=== PATIENT | female | born 1940 | race Caucasian/White ===

== ENCOUNTER 2018-12-13 06:41 | Day surgery (SDC) | payer OTHER, SELFPAY ==
[2018-12-13 07:10] VITALS: BP 155/78; PULSE 63; RESP 15; TEMP 36.4; O2SAT 94; BMI 21.1
[2018-12-13] MEDS: PROPARACAINE 0.5% OPHTH SOL 2 DROPS EYE-OP (07:15)
[2018-12-13] MEDS: CATARACT EYE COMPOUND (10 DROPS/SYRINGE) 3 DROPS EYE-OP (07:20)
--- NOTE | 2018-12-13 08:13 | PM.PREOP ---
Pre-operative Note Interval Note History & Physical reviewed/Exam performed by Physician: No Changes to H&P: No
--- NOTE | 2018-12-13 08:13 | PM.OP.1 ---
Operative Date/Time/Diagnoses Pre-op diagnosis: Nuclear Cataract Left eye Post-op diagnosis: same Procedure & Clinicians Surgeon: Claudy Burch Anesthesia Type: MAC +/- and Sedation Operative Notes Procedure in detail: Patient brought to the operating suite. Tetracaine drops placed in the left eye. Patient was prepped and draped in sterile manner. Wire lid speculum was placed in the eye. Betadine drops were placed on the eye. This was irrigated. Lidocaine jelly was placed on the eye. A paracentesis port was created with a side-port blade. 0.1 mL 1% preservative free lidocaine was injected into the anterior chamber. The anterior chamber was deepened with viscoelastic. 2.6 mm keratome was used to create a temporal clear corneal incision. Cystotome and Utrata forceps were used to create continuous tear capsulorrhexis. Balanced salt solution was used to hydro dissect the nucleus. The phacoemulsification handpiece was inserted and the nucleus was removed using the stop and chop technique. The irrigation aspiration handpiece was inserted and the remaining cortex was removed. Anterior chamber was deepened with viscoelastic. An Sarmiento ZCB00 intraocular lens with a power of 24.5 was injected into the capsular bag. Irrigation aspiration handpiece was inserted and the remaining viscoelastic was removed. Incision was hydrated with balanced salt solution and found to be leak free with pressure with Weck-Cydney sponges. 0.1 mL Vigamox injected anterior chamber. 0.3 mL Kenalog 10 mg was injected subconjunctivally. Lid speculum was removed. The patient left the operating room in excellent condition. Complications: none Condition: stable Disposition: same day surgery
[2018-12-13] MEDS: PHENYLEPHRINE/LIDOCAINE VIAL (OR) 0.2 ML EYE-OP (08:29)
[2018-12-13] MEDS: MOXIFLOXACIN OPHTH DROPS 3 ML BOTTLE 2 DROPS INJ (08:29)
[2018-12-13] MEDS: CHONDROIDTIN/SOD HYALURONATE 1.05 ML SYRINGE INTRAOCULA (08:29)
[2018-12-13] MEDS: TRIAMCINOLONE 50 MG/5 ML VIAL INJ (08:29)
[2018-12-13] MEDS: TETRACAINE 0.5% OPHTH DROPS 4 ML 2 DROPS EYE-OP (08:30)
[2018-12-13] MEDS: BALANCED SALT IRRIG SOLN NO.2 500 ML, EPINEPHrine 1 MG IRR (08:30)
[2018-12-13] MEDS: LIDOCAINE JELLY 2% 5 ML 1 APPLIC TOP (08:30)
[2018-12-13 08:45] VITALS: BP 130/75; PULSE 55; RESP 15; TEMP 36.2; O2SAT 97
== END 2018-12-13 08:54 ==
LOC: OR 06:44
PROVIDERS: Admitting Provider Anesthesiology; PCP Family Medicine; Visit Provider Ophthalmology
PROC: (CPT 66984; principal; 2018-12-13 08:45)
DX: H25.12 Age-related nuclear cataract, left eye (principal); I10 Essential (primary) hypertension; D64.9 Anemia, unspecified; J45.909 Unspecified asthma, uncomplicated; R73.9 Hyperglycemia, unspecified
CPT/HCPCS: 66984; J0171; J2250; J3010; J3301

== ENCOUNTER 2018-12-27 08:20 | Day surgery (SDC) | payer OTHER, SELFPAY ==
[2018-12-27 09:25] VITALS: BP 125/82; PULSE 59; RESP 16; TEMP 36.3; O2SAT 97
[2018-12-27 09:28] VITALS: BMI 21.1
[2018-12-27] MEDS: PROPARACAINE 0.5% OPHTH SOL 2 DROPS EYE-OP (09:32)
[2018-12-27] MEDS: CATARACT EYE COMPOUND (10 DROPS/SYRINGE) 3 DROPS EYE-OP (09:44)
--- NOTE | 2018-12-27 10:01 | PM.PREOP ---
Pre-operative Note Interval Note History & Physical reviewed/Exam performed by Physician: No Changes to H&P: No
--- NOTE | 2018-12-27 10:01 | PM.OP.1 ---
Operative Date/Time/Diagnoses Pre-op diagnosis: Nuclear cataract right eye Procedure & Clinicians Procedure: Cataract Surgery Same procedure as scheduled: Yes Surgeon: Claudy Burch Anesthesia Type: MAC +/- and Sedation Operative Notes Procedure in detail: Patient brought to the operating suite. Tetracaine drops placed in the right eye. Patient was prepped and draped in sterile manner. Wire lid speculum was placed in the eye. Betadine drops were placed on the eye. This was irrigated. Lidocaine jelly was placed on the eye. A paracentesis port was created with a side-port blade. 0.1 mL 1% preservative free lidocaine was injected into the anterior chamber. The anterior chamber was deepened with viscoelastic. 2.6 mm keratome was used to create a temporal clear corneal incision. Cystotome and Utrata forceps were used to create continuous tear capsulorrhexis. Balanced salt solution was used to hydro dissect the nucleus. The phacoemulsification handpiece was inserted and the nucleus was removed using the stop and chop technique. The irrigation aspiration handpiece was inserted and the remaining cortex was removed. Anterior chamber was deepened with viscoelastic. An Sarmiento ZCB00 intraocular lens with a power of 24.5 was injected into the capsular bag. Irrigation aspiration handpiece was inserted and the remaining viscoelastic was removed. Incision was hydrated with balanced salt solution and found to be leak free with pressure with Weck-Cydney sponges. 0.1 mL Vigamox injected anterior chamber. 0.3 mL Kenalog 10 mg was injected subconjunctivally. Lid speculum was removed. The patient left the operating room in excellent condition. Complications: none Condition: stable Disposition: same day surgery
[2018-12-27] MEDS: CHONDROIDTIN/SOD HYALURONATE 1.05 ML SYRINGE INTRAOCULA (10:10)
[2018-12-27] MEDS: LIDOCAINE JELLY 2% 5 ML 1 APPLIC TOP (10:10)
[2018-12-27] MEDS: PHENYLEPHRINE/LIDOCAINE VIAL (OR) 0.2 ML EYE-OP (10:11)
[2018-12-27] MEDS: TETRACAINE 0.5% OPHTH DROPS 4 ML 2 DROPS EYE-OP (10:11)
[2018-12-27] MEDS: MOXIFLOXACIN OPHTH DROPS 3 ML BOTTLE 2 DROPS INJ (10:11)
[2018-12-27] MEDS: BALANCED SALT IRRIG SOLN NO.2 500 ML, EPINEPHrine 1 MG IRR (10:12)
[2018-12-27] MEDS: TRIAMCINOLONE 50 MG/5 ML VIAL INJ (10:12)
[2018-12-27 10:29] VITALS: BP 161/77; PULSE 50; RESP 14; TEMP 36.6; O2SAT 98
== END 2018-12-27 10:37 ==
LOC: OR 08:22
PROVIDERS: PCP Family Medicine; Visit Provider Ophthalmology
PROC: (CPT 66984; principal; 2018-12-27 10:15)
DX: H25.11 Age-related nuclear cataract, right eye (principal); I10 Essential (primary) hypertension; D64.9 Anemia, unspecified; E78.5 Hyperlipidemia, unspecified; J45.909 Unspecified asthma, uncomplicated
CPT/HCPCS: 66984; J0171; J2250; J3010; J3301

== ENCOUNTER 2020-07-07 15:49 | Emergency (ER) | payer OTHER, SELFPAY ==
[2020-07-07] VITALS (12 sets, daily range): BP systolic 151–166; BP diastolic 72–82; PULSE 62–72; RESP 16; TEMP 36.8; O2SAT 91–98; BMI 22.2
--- NOTE | 2020-07-07 16:26 | ED.SKABFB ---
HPI - Skin/Abscess/Foreign Bdy <ANTONELLA Perez - Last Filed: 07/07/20 21:11> General Chief complaint: Skin/Abscess/Foreign Body Stated complaint: recent blood clot, surgery, R leg swelling today Time Seen by Provider: 07/07/20 15:56 Source: patient Mode of arrival: Ambulatory Limitations: no limitations History of Present Illness HPI narrative: This is a 80 year female, nonsmoker, who has past medical history significant for hypertension and recent blood clot in right lower extremity and had surgery for removal at [facility] in [facility] presents to ED with chief complain of right leg swelling, redness, warmth, and pus-like drainage for 2 days. Daughter reports patient also mentions some leg cramping discomfort today. Patient reports she went to [facility] via EMS after she passed out and found a clot in right groin and was transferred to [place] and had a surgery on 06/12/20. She came home several days after and had 2 week post op appointment with another ultrasound test but not sure of the result yet. Patient is currently taking Eliquis 5 mg. Patient denies chest pain, dyspnea, fever or chills. Patient reports discomfort like stretching in skin in right leg when sitting on a chair for prolonged time. Patient started taking HCTZ 50 mg daily last [address] Kim prescribed. Daughter reports patient had a small blister in the posterior calf of right leg that she scratched and noticed yellowish pus like drainage. Also daughter noticed purplish bruise in left heel with puple bruise and opened skin. Related Data Home Medications Medication Instructions Recorded Confirmed HYDROCHLOROTHIAZIDE (Hydrodiuril / 25 mg PO Q DAY #0 07/25/08 12/27/18 Hctz) HYDROCODONE/ACET 5/500 - 1 tab PO Q4HPRN #0 07/25/08 12/27/18 (Hydrocodon-Acetaminophen 5-500) MULTIVITAMIN (Multivitamin 1 cap PO EVERY DAY #0 07/25/08 12/27/18 -) amlodipine 5 mg PO DAILY 12/27/18 12/27/18 clonidine HCl 0.1 mg PO 12/27/18 metoprolol tartrate 50 mg PO DAILY 12/27/18 12/27/18 olmesartan 20 mg PO DAILY 12/27/18 12/27/18 omega 1-leo-lae-fish oil [Fish Oil] 1 cap PO DAILY 12/27/18 12/27/18 zolpidem 5 mg PO DAILY 12/27/18 12/27/18 Previous Rx's Medication Instructions Recorded doxycycline hyclate 100 mg PO BID 7 Days #14 cap 07/07/20 Allergies Allergy/AdvReac Type Severity Reaction Status Date / Time bee venom protein (honey bee) Allergy Severe Hives Verified 12/27/18 09:15 strawberry AdvReac Severe Hives Verified 12/27/18 09:15 Review of Systems <ANTONELLA Perez - Last Filed: 07/07/20 21:11> Review of Systems Narrative: General: Denies fever, chills, fatigue, malaise, sweats. HEENT: Denies sinus pain, ear pain, sore throat, difficulty swallowing, dizziness. Respiratory: Denies dyspnea, cough, wheezing, hemoptysis, sputum. Cardiovascular: Denies chest pain, palpitations, orthopnea, edema. Gastrointestinal: Denies nausea, vomiting, abdominal pain, diarrhea, constipation, melena. : Denies dysuria, frequency, incontinence, hematuria, urinary retention. Musculoskeletal: See HPI Skin: See HPI Neurologic: Denies weakness, headache, numbness, change in speech, confusion, seizures, incoordination. Psychiatric: No concerning psychosocial issues. 12-point review of systems is negative except for those stated above. Patient History <ANTONELLA Perez - Last Filed: 07/07/20 21:11> Medical History (Updated 07/07/20 @ 20:51 by ANTONELLA Perez) Hypertension Obstruction of left leg artery Surgical History (Updated 07/07/20 @ 17:39 by ANTONELLA Perez) H/O vascular surgery Social History household members: none Smoking Status: Never smoker Smoking Status: Never smoker alcohol intake frequency: 0-2 drinks per day Substance Use Type: does not use Exam <ANTONELLA Perez - Last Filed: 07/07/20 21:11> Narrative Exam Narrative: GEN: Alert, oriented x 3, thin appearing and nourished, and in no acute distress. Head: Normal cephalic, atraumatic. No scalp or temporal tenderness, palpable mass or rash. EYES: Pupils are equal, round, and reactive to light and accommodation. Extraocular muscles are intact bilaterally. There is no subconjunctival hemorrhage, exudate and sclera non-icteric. ENT: Hearing grossly intact. Nose without bleeding, purulent discharge or deviation. Airway patent. Neck: Trachea in midline. No JVD, non-tender without lymphadenopathy. No masses or thyroid megaly. Supple, non-tender and no meningeal signs. CARDIAC: Normal regular rate and rhythm without murmurs, gallops, or rubs. No chest wall tenderness. 2+ pitting edema to right lower leg, cyanosis or pallor. Capillary refill is less than 2 seconds. RESPIRATORY: Lungs are clear to auscultate bilaterally. No cough, wheezes, rales, or rhonchi. No stridor, respiratory distress, increase work of breathing, or accessary muscle used. ABD: Abdomen soft, nontender and non-distended. No guarding or rebound tenderness to palpate. Bowel sounds are normal in all 4 quadrants. There is no palpable masses or organomegaly. EXT: Right upper thigh appreciated hard to palpate. Right thigh discoloration with yellowish tinge color. Slowed cap refill to 4 seconds in right toes. Difficulty palpating dorsal pedis pulse in right foot. SKIN: Diffuse erythema, warmth to mid calf to foot. Swelling to right leg and 2+ pitting edema to right lower extremity. Warm, dry, normal color for patient. Approx. 1 cm opened blister in right medial calf draining clear yellowish fluid. Multiple ecchymotic lesions on right toes. Right great toe with edema and dark ecchymosis with epithelial open skin lesion. Left heel with a quarter-size ecchymotic lesion with open epithelia skin. Right lower leg tender to palpate. BACK: Nontender without deformity or crepitance. No flank tenderness. NEUROLOGICAL: Alert and oriented to place, time and person. Sensation and motor function intact bilaterally. No facial droops, dysphasia. PSYCHIATRIC: Good judgement and reason, without hallucinations, abnormal affect or abnormal behaviors during the examination. Patient is not suicidal. Initial Vital Signs Initial Vital Signs: Vital Signs Temperature 98.3 F 07/07/20 16:03 Pulse Rate 72 07/07/20 16:03 Respiratory Rate 16 07/07/20 16:03 Blood Pressure 162/77 H 07/07/20 16:03 Pulse Oximetry 97 07/07/20 16:03 <Cheri Ascencio DO - Last Filed: 07/09/20 07:14> Initial Vital Signs Initial Vital Signs: Vital Signs Temperature 98.3 F 07/07/20 16:03 Pulse Rate 72 07/07/20 16:03 Respiratory Rate 16 07/07/20 16:03 Blood Pressure 162/77 H 07/07/20 16:03 Pulse Oximetry 97 07/07/20 16:03 Procedures <Duarte GeigerANTONELLA Douglass - Last Filed: 07/07/20 21:11> Orthopedic Splinting/Casting Injury #1: Side: right Lower Extremity Injury Location: upper leg and lower leg Lower Extremity Immobilizer: Gene wrap Post splinting neuro exam: intact Post splinting vascular exam: intact Placed by: Nursing Scores <ANTONELLA Perez - Last Filed: 07/07/20 21:11> GCS [place] coma scale eye opening: Spontaneous [place] coma scale verbal response: Orientated Zainab coma scale motor response: Obey commands [place] coma scale total score: 15 qSOFA Altered Mental Status (GCS <15): No Respiratory rate greater than/equal to 22: No Systolic blood pressure less than or equal to 100: No qSOFA Total: 0 0-1 Not High Risk 1-3 High risk Course <ANTONELLA Perez - Last Filed: 07/07/20 21:11> Orders Ordered: Discontinued Medications Bacitracin (Bacitracin Oint 0.9 Gm Pckt) 2 applic TOP NOW ONE Stop: 07/07/20 20:07 Last Admin: 07/07/20 20:26 Dose: 2 applic Documented by: BELINDAARTGARCIA Doxycycline Hyclate (Doxycycline Hyclate 100 Mg Tablet) 100 mg PO NOW ONE Stop: 07/07/20 19:59 Last Admin: 07/07/20 20:26 Dose: 100 mg Documented by: REUBEN Consultations Consultation #1: Consulted Dr. Moran, vascular surgeon who had followed up the patient in [facility] in [place] informed today's arterial ultrasound findings are similar to 2 weeks ago after postop. Dr. Moran states no emergent therapy or transfer is required at this time. He recommended compression stocking or applying compression wrap on affected leg and to elevate the leg during rest. Informed Dr. Moran that will cover the patient with oral antibiotic medication for an early cellulitis. He states will be happy to evaluate the patient at the office this coming week. Time: 19:50 Vital Signs Vital signs: Vital Signs - 8 hr 07/07/20 16:03 07/07/20 16:53 07/07/20 17:01 Temperature 98.3 F Pulse Rate 72 64 66 Respiratory Rate 16 16 Blood Pressure 162/77 H 166/77 H Pulse Oximetry 97 95 96 07/07/20 17:30 07/07/20 18:00 07/07/20 18:01 Temperature Pulse Rate 62 64 65 Respiratory Rate 16 Blood Pressure 157/75 H 163/79 H Pulse Oximetry 97 96 91 07/07/20 18:30 07/07/20 19:00 07/07/20 19:30 Temperature Pulse Rate 65 62 62 Respiratory Rate 16 16 Blood Pressure 166/80 H 164/77 H Pulse Oximetry 96 94 95 07/07/20 19:35 Temperature Pulse Rate 64 Respiratory Rate 16 Blood Pressure 160/82 H Pulse Oximetry 98 <Cheri Ascencio, DO - Last Filed: 07/09/20 07:14> Orders Ordered: Discontinued Medications Bacitracin (Bacitracin Oint 0.9 Gm Pckt) 2 applic TOP NOW ONE Stop: 07/07/20 20:07 Last Admin: 07/07/20 20:26 Dose: 2 applic Documented by: REUBEN Doxycycline Hyclate (Doxycycline Hyclate 100 Mg Tablet) 100 mg PO NOW ONE Stop: 07/07/20 19:59 Last Admin: 07/07/20 20:26 Dose: 100 mg Documented by: REUBEN Vital Signs Vital signs: Vital Signs - 8 hr 07/07/20 16:03 07/07/20 16:53 07/07/20 17:01 Temperature 98.3 F Pulse Rate 72 64 66 Respiratory Rate 16 16 Blood Pressure 162/77 H 166/77 H Pulse Oximetry 97 95 96 07/07/20 17:30 07/07/20 18:00 07/07/20 18:01 Temperature Pulse Rate 62 64 65 Respiratory Rate 16 Blood Pressure 157/75 H 163/79 H Pulse Oximetry 97 96 91 07/07/20 18:30 07/07/20 19:00 07/07/20 19:30 Temperature Pulse Rate 65 62 62 Respiratory Rate 16 16 Blood Pressure 166/80 H 164/77 H Pulse Oximetry 96 94 95 07/07/20 19:35 Temperature Pulse Rate 64 Respiratory Rate 16 Blood Pressure 160/82 H Pulse Oximetry 98 MDM - Skin/Abscess/Foreign Bdy <Duarte Wang-ANTONELLA Miles - Last Filed: 07/07/20 21:11> Differential Diagnosis Differential diagnosis: Likely cellulitis and other (Venous insufficiency, DVT, CHF, PAD) Medical Records Attestation: I reviewed the patient's medical records. Lab Data Attestation: I reviewed the patient's lab results. Result diagrams: 07/07/20 16:13 07/07/20 16:13 Labs: Lab Results 07/07/20 07/07/20 07/07/20 Range/Units 16:13 16:13 16:13 WBC 7.4 (4.5-11.0) X10^3/uL RBC 3.76 L (4.0-5.2) X10^6/uL Hgb 12.3 (12.0-16.0) g/dL Hct 36.6 (36-46) % MCV 97.4 (80-100) fL MCH 32.7 (26-34) PG MCHC 33.6 (30-36) % RDW 14.8 (11.6-14.8) % Plt Count 204 (150-400) X10^3/uL Neut % (Auto) 70.3 (50-75) % Lymph % (Auto) 15.8 L (25-40) % Vernon % (Auto) 11.6 (3-14) % Eos % (Auto) 1.8 L (2-4) % Baso % (Auto) 0.5 (0-2) % Neut # (Auto) 5200 (0946-3197) /uL Lymph # (Auto) 1200 (5855-2049) /uL Vernon # (Auto) 900 (0-900) /uL Eos # (Auto) 100 (0-450) /uL Baso # (Auto) 0 (0-100) /uL PT 16.9 H (10.1-12.7) SECONDS INR 1.5 H (0.9-1.3) APTT 38 H (26.4-36.2) SECONDS Sodium 137 (137-145) mmol/L Potassium 3.6 (3.4-5.1) mmol/L Chloride 102 (98-107) mmol/L Carbon Dioxide 31 (22-32) mmol/L BUN 22 H (7-17) mg/dL Creatinine 0.66 (0.52-1.04) mg/dL Estimated GFR > 60.0 (>60) mL/min BUN/Creatinine Ratio 33.3 H (6-22) Glucose 106 (80-110) mg/dL Lactate (0.7-2.1) mmol/L Calcium 9.8 (8.4-10.2) mg/dL Total Bilirubin 0.5 (0.2-1.3) mg/dL AST 24 (14-36) IU/L ALT 12 (<35) IU/L Alkaline Phosphatase 68 (38-126) U/L NT-Pro-B Natriuret Pep 662 H (<450) pg/mL Total Protein 7.3 (6.3-8.2) g/dL Albumin 4.0 (3.5-5.0) g/dL Globulin 3.3 (1.7-4.1) g/dL Albumin/Globulin Ratio 1.2 (1.0-2.8) Procalcitonin (<0.5) ng/mL 07/07/20 07/07/20 Range/Units 16:13 16:13 WBC (4.5-11.0) X10^3/uL RBC (4.0-5.2) X10^6/uL Hgb (12.0-16.0) g/dL Hct (36-46) % MCV (80-100) fL MCH (26-34) PG MCHC (30-36) % RDW (11.6-14.8) % Plt Count (150-400) X10^3/uL Neut % (Auto) (50-75) % Lymph % (Auto) (25-40) % Vernon % (Auto) (3-14) % Eos % (Auto) (2-4) % Baso % (Auto) (0-2) % Neut # (Auto) (2429-2705) /uL Lymph # (Auto) (2698-2078) /uL Vernon # (Auto) (0-900) /uL Eos # (Auto) (0-450) /uL Baso # (Auto) (0-100) /uL PT (10.1-12.7) SECONDS INR (0.9-1.3) APTT (26.4-36.2) SECONDS Sodium (137-145) mmol/L Potassium (3.4-5.1) mmol/L Chloride (98-107) mmol/L Carbon Dioxide (22-32) mmol/L BUN (7-17) mg/dL Creatinine (0.52-1.04) mg/dL Estimated GFR (>60) mL/min BUN/Creatinine Ratio (6-22) Glucose (80-110) mg/dL Lactate 1.2 (0.7-2.1) mmol/L Calcium (8.4-10.2) mg/dL Total Bilirubin (0.2-1.3) mg/dL AST (14-36) IU/L ALT (<35) IU/L Alkaline Phosphatase (38-126) U/L NT-Pro-B Natriuret Pep (<450) pg/mL Total Protein (6.3-8.2) g/dL Albumin (3.5-5.0) g/dL Globulin (1.7-4.1) g/dL Albumin/Globulin Ratio (1.0-2.8) Procalcitonin < 0.05 (<0.5) ng/mL MDM Narrative Medical decision making narrative: This is a 80 year female who presents to ED with her daughter with chief complain of right lower leg swelling, redness, warmth, open skin lesions and drainage. Patient recently had emergent right arterial embolectomy on 06/08/20 at [facility] after she was initially evaluated at [facility] and found right common artery occlusion. Patient was discharged to home on the 12 of June and has been on Eliquis 5 mg twice a day. Patient reports had repeated 2 week postop ultrasound on right leg but is not sure of the result. Concerned for DVT and worsening arterial occlusion ultrasound test was ordered and obtained. There is no indications for DVT. There are 2 hematoma in right thigh measuring 8 x 3.5 x 6.4 and 6.6 x 2.5 x 3.6 cm. 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 36 cm/sec Monophasic flow was seen in anterior tibial artery/dorsalis pedis. Labs are unremarkable. No leukocytosis. Mildly elevated coags today. Elevated BUN of 22 and BUN/creatinine ratio of 33.3 with normal kidney function and LFTS. Mildy elevated pro BNP of 662 and she has been taking diuretics last 3 days for lower leg swelling. There is no elevation in lactate or procalcitonin indicating sepsis. Dr. Moran consulted with physical, lab, ultrasound findings. He recommended Gene wrap or compression stocking on right lower extremities and to elevate affected leg as much as possible during rest. He recommended no emergent transfer for treatment are needed since today's findings are similar to last ultrasound during postop. Informed Dr. Moran that will treat patient with early cellulitis with antibiotic medication and he informed is happy to re-evaluate patient next week and to call the office to arrange this. Wound care done on bilateral lower extremities. Gene wrap applied on right foot to groin. Return precautions were discussed with patient and daughter and advised continue with antibiotic medication for 7 days. Patient was treated with 1st dose doxycycline ED. patient and daughter both verbalized understanding in agreement with treatment plan. <Cheri Ascencio, DO - Last Filed: 07/09/20 07:14> Lab Data Labs: Lab Results 07/07/20 07/07/20 07/07/20 Range/Units 16:13 16:13 16:13 WBC 7.4 (4.5-11.0) X10^3/uL RBC 3.76 L (4.0-5.2) X10^6/uL Hgb 12.3 (12.0-16.0) g/dL Hct 36.6 (36-46) % MCV 97.4 (80-100) fL MCH 32.7 (26-34) PG MCHC 33.6 (30-36) % RDW 14.8 (11.6-14.8) % Plt Count 204 (150-400) X10^3/uL Neut % (Auto) 70.3 (50-75) % Lymph % (Auto) 15.8 L (25-40) % Vernon % (Auto) 11.6 (3-14) % Eos % (Auto) 1.8 L (2-4) % Baso % (Auto) 0.5 (0-2) % Neut # (Auto) 5200 (8096-7825) /uL Lymph # (Auto) 1200 (3037-7914) /uL Vernon # (Auto) 900 (0-900) /uL Eos # (Auto) 100 (0-450) /uL Baso # (Auto) 0 (0-100) /uL PT 16.9 H (10.1-12.7) SECONDS INR 1.5 H (0.9-1.3) APTT 38 H (26.4-36.2) SECONDS Sodium 137 (137-145) mmol/L Potassium 3.6 (3.4-5.1) mmol/L Chloride 102 (98-107) mmol/L Carbon Dioxide 31 (22-32) mmol/L BUN 22 H (7-17) mg/dL Creatinine 0.66 (0.52-1.04) mg/dL Estimated GFR > 60.0 (>60) mL/min BUN/Creatinine Ratio 33.3 H (6-22) Glucose 106 (80-110) mg/dL Lactate (0.7-2.1) mmol/L Calcium 9.8 (8.4-10.2) mg/dL Total Bilirubin 0.5 (0.2-1.3) mg/dL AST 24 (14-36) IU/L ALT 12 (<35) IU/L Alkaline Phosphatase 68 (38-126) U/L NT-Pro-B Natriuret Pep 662 H (<450) pg/mL Total Protein 7.3 (6.3-8.2) g/dL Albumin 4.0 (3.5-5.0) g/dL Globulin 3.3 (1.7-4.1) g/dL Albumin/Globulin Ratio 1.2 (1.0-2.8) Procalcitonin (<0.5) ng/mL 07/07/20 07/07/20 Range/Units 16:13 16:13 WBC (4.5-11.0) X10^3/uL RBC (4.0-5.2) X10^6/uL Hgb (12.0-16.0) g/dL Hct (36-46) % MCV (80-100) fL MCH (26-34) PG MCHC (30-36) % RDW (11.6-14.8) % Plt Count (150-400) X10^3/uL Neut % (Auto) (50-75) % Lymph % (Auto) (25-40) % Vernon % (Auto) (3-14) % Eos % (Auto) (2-4) % Baso % (Auto) (0-2) % Neut # (Auto) (9952-8150) /uL Lymph # (Auto) (2713-1109) /uL Vernon # (Auto) (0-900) /uL Eos # (Auto) (0-450) /uL Baso # (Auto) (0-100) /uL PT (10.1-12.7) SECONDS INR (0.9-1.3) APTT (26.4-36.2) SECONDS Sodium (137-145) mmol/L Potassium (3.4-5.1) mmol/L Chloride (98-107) mmol/L Carbon Dioxide (22-32) mmol/L BUN (7-17) mg/dL Creatinine (0.52-1.04) mg/dL Estimated GFR (>60) mL/min BUN/Creatinine Ratio (6-22) Glucose (80-110) mg/dL Lactate 1.2 (0.7-2.1) mmol/L Calcium (8.4-10.2) mg/dL Total Bilirubin (0.2-1.3) mg/dL AST (14-36) IU/L ALT (<35) IU/L Alkaline Phosphatase (38-126) U/L NT-Pro-B Natriuret Pep (<450) pg/mL Total Protein (6.3-8.2) g/dL Albumin (3.5-5.0) g/dL Globulin (1.7-4.1) g/dL Albumin/Globulin Ratio (1.0-2.8) Procalcitonin < 0.05 (<0.5) ng/mL Discharge Plan Departure Patient Disposition: Home Clinical Impression: Cellulitis Qualifiers: Site of cellulitis: extremity Site of cellulitis of extremity: lower extremity Laterality: right Qualified Code(s): L03.115 - Cellulitis of right lower limb Instructions: DI for Cellulitis -- Adult, Peripheral Artery Disease Activity Restrictions/Additional Instructions: You have been diagnosed with [cellulitis in right lower leg. Left lower assuring. There is no deep vein thrombosis ultrasound today in right lower leg. There is arterial insufficiency to right lower extremity. You were medicated with doxycycline which is antibiotic medication to treat cellulitis. Please continue with your current medications including diuretics. Please keep the wound clean and dry. Use Gene wrap on affected leg from lower leg to groin and elevate affected leg as much as you can during rest]. What to do: *Take your medications as directed. Please continue with doxycycline twice a day for next 7 days. This medication has been transmitted to [facility] in [place]. *Follow up with your primary care provider in 2-3 days, call for an appointment. Let them know you were seen in the ED and that we asked you to be seen in follow up. Please follow-up with Dr. Moran next week for re-evaluation. *Return to ED if you have any new, worsening, or concerning symptoms, such as [worsening pain, redness, swelling, warmth, tingling/numbness/weakness to affected leg, chest pain, breathing difficulty, near syncope or any acute concerns]. Prescriptions: New doxycycline hyclate 100 mg capsule 100 mg PO BID 7 Days Qty: 14 RF: 0 No Action HYDROCHLOROTHIAZIDE (Hydrodiuril / Hctz) 25 mg PO Q DAY Qty: 0 RF: 0 MULTIVITAMIN (Multivitamin -) 1 cap PO EVERY DAY Qty: 0 RF: 0 HYDROCODONE/ACET 5/500 - (Hydrocodon-Acetaminophen 5-500) 1 tab PO Q4HPRN Qty: 0 RF: 0 metoprolol tartrate 50 mg tablet 50 mg PO DAILY RF: 0 clonidine HCl 0.1 mg Tablet 0.1 mg PO RF: 0 amlodipine 5 mg Tablet 5 mg PO DAILY RF: 0 zolpidem 10 mg Tablet 5 mg PO DAILY RF: 0 omega 9-ctk-nvo-fish oil [Fish Oil] 1,000 mg (120 mg-180 mg) Capsule 1 cap PO DAILY RF: 0 olmesartan 20 mg Tablet 20 mg PO DAILY RF: 0 Referrals: Remi Cohen MD [Primary Care Provider] - Juan Moran MD [Non-Staff] - <Cheri Ascencio DO - Last Filed: 07/09/20 07:14> Cosign ED Attending Cosignature Attestation: I was immediately available in the department for consultation. Documentation has been reviewed. I agree with assessment and plan.
[2020-07-07 16:29] LABS: Add Manual Diff / Slide Review NO; Basophils Absolute Auto 0 /uL (0-100); Basophils Percent Auto 0.5 % (0-2); Eosinophils Absolute Auto 100 /uL (0-450); Eosinophils Percent Auto 1.8 % (2-4); Hematocrit 36.6 % (36-46); Hemoglobin 12.3 g/dL (12.0-16.0); INR 1.5 (0.9-1.3); Lymphocytes Absolute Auto 1200 /uL (1100-4500); Lymphocytes Percent Auto 15.8 % (25-40); Mean Corpuscular HGB Conc 33.6 % (30-36); Mean Corpuscular Hemoglobin 32.7 PG (26-34); Mean Corpuscular Volume 97.4 fL (80-100); Monocytes Absolute Auto 900 /uL (0-900); Monocytes Percent Auto 11.6 % (3-14); Neutrophils Absolute Auto 5200 /uL (1500-7000); Neutrophils Percent Auto 70.3 % (50-75); Platelet Count 204 X10^3/uL (150-400); Prothrombin Time 16.9 SECONDS (10.1-12.7); Red Blood Cell Count 3.76 X10^6/uL (4.0-5.2); Red Cell Distribution Width 14.8 % (11.6-14.8); White Blood Cell Count 7.4 X10^3/uL (4.5-11.0)
[2020-07-07 16:32] LABS: PTT Partial Thromboplastin Tim 38 SECONDS (26.4-36.2)
[2020-07-07 16:37] LABS: Alanine Aminotransferase 12 IU/L (<35); Albumin Globulin Ratio 1.2 (1.0-2.8); Alkaline Phosphatase 68 U/L (38-126); Aspartate Aminotransferase 24 IU/L (14-36); BUN Creatinine Ratio 33.3 (6-22); Bilirubin Total 0.5 mg/dL (0.2-1.3); Blood Urea Nitrogen 22 mg/dL (7-17); Calcium 9.8 mg/dL (8.4-10.2); Carbon Dioxide 31 mmol/L (22-32); Chloride 102 mmol/L (98-107); Estimated Glomerular Filt Rate > 60.0 mL/min (>60); Globulin 3.3 g/dL (1.7-4.1); Glucose 106 mg/dL (80-110); HEMOLYSIS < 15 (0-50); Lactate (Lactic Acid) 1.2 mmol/L (0.7-2.1); Potassium 3.6 mmol/L (3.4-5.1); Sodium 137 mmol/L (137-145); Total Protein 7.3 g/dL (6.3-8.2)
[2020-07-07 16:45] LABS: NT-proBNP (BNP-Adult 18+) 662 pg/mL (<450)
[2020-07-07 16:55] LABS: Procalcitonin < 0.05 ng/mL (<0.5)
--- NOTE | 2020-07-07 17:33 | DI.US.S_ITS ---
PROCEDURE: US ARTERIAL DUPLEX LE RT INDICATIONS: PAIN, LUMP, EDEMA POST EMBOLECTOMY 5 WEEKS AGO TECHNIQUE: Color and pulse Doppler interrogation was performed of the right lower extremity arterial system, with image documentation. COMPARISON: [facility], , ARTERIAL LOW.EXTREMITY UNILAT., 08/23/2015, 13:33. FINDINGS: Common femoral artery: 140 cm/sec, with monophasic flow. Deep femoral artery: 87 cm/sec, with monophasic flow. Proximal superficial femoral artery: 26 cm/sec, with monophasic flow. Mid superficial femoral artery: 0 cm/sec, occluded Distal superficial femoral artery: 79 cm/sec, with monophasic flow. Popliteal artery: 75 cm/sec, with monophasic flow. Posterior tibial artery: 44 cm/sec, with monophasic flow. Anterior tibial artery/dorsalis pedis: 36 cm/sec, with monophasic flow. [place]-scale imaging description: Moderate to severe atherosclerotic plaque throughout visualized right lower extremity arteries are seen with occlusion of mid superficial femoral artery. There is a 8 x 3.5 x 6.4 centimeter hypoechoic fluid collection with internal debris seen in medial right upper thigh without internal vascularity. Similar 6.6 x 2.5 x 3.6 centimeter hypoechoic soft tissue fluid collection is also seen without internal vascularity. IMPRESSION: 1. Moderate to severe atherosclerotic disease throughout visualized right lower extremity arteries with occlusion of mid superficial femoral artery. Reconstituted distal right superficial femoral artery with 3 vessel runoff to the ankle level. 2. Complex hypoechoic collection seen in soft tissue over right upper to mid thigh likely represent organizing hematoma. Dictated by: Angelo Manning M.D. on 07/07/2020 at 19:06 Approved by: Angelo Manning M.D. on 07/07/2020 at 19:10
--- NOTE | 2020-07-07 17:43 | DI.US.S_ITS ---
PROCEDURE: US PERIPH VENOUS LOW EXTREM RT INDICATIONS: EDEMA POST RECENT EMBOLECTOMY TECHNIQUE: Real-time imaging, as well as color and pulse Doppler interrogation, were performed of the lower extremity deep veins from the inguinal ligament to the popliteal fossa. COMPARISON: None. FINDINGS: The common femoral, femoral and popliteal veins are normally compressible, and free of intraluminal thrombus. Color and pulse Doppler demonstrate normal phasic intraluminal flow. There is normal augmentation response to distal compression maneuver. IMPRESSION: No evidence of DVT in visualized right lower extremity veins. Dictated by: Angelo Manning M.D. on 07/07/2020 at 18:37 Approved by: Angelo Manning M.D. on 07/07/2020 at 18:38
[2020-07-07] MEDS: DOXYCYCLINE HYCLATE 100 MG TABLET PO (20:26)
[2020-07-07] MEDS: BACITRACIN OINT 0.9 GM PCKT 2 APPLIC TOP (20:26)
== END 2020-07-07 21:02 | disposition home or self-care (01) ==
PROVIDERS: Emergency Provider Nurse Practitioner Family; PCP Family Medicine
DX: L03.115 Cellulitis of right lower limb (principal); Z79.01 Long term (current) use of anticoagulants; I10 Essential (primary) hypertension
CPT/HCPCS: 36415; 80053; 83605; 83880; 84145; 85025; 85610; 85730; 87040; 87070; 87075; 87077; 87205; 93926; 93971; 99284

== ENCOUNTER → 2020-08-06 09:11 | Outpatient (CLI) | payer OTHER, SELFPAY ==
--- NOTE | 2020-08-06 | DI.US.S_ITS ---
PROCEDURE: US PERIPH VENOUS LOW EXTREM RT INDICATIONS: Right lower extremity swelling. Rule out deep vein thrombosis. TECHNIQUE: Real-time imaging, as well as color and pulse Doppler interrogation, were performed of the lower extremity deep veins from the inguinal ligament to the popliteal fossa. COMPARISON: None. FINDINGS: The common femoral, femoral and popliteal veins are normally compressible, and free of intraluminal thrombus. Color and pulse Doppler demonstrate normal phasic intraluminal flow. There is normal augmentation response to distal compression maneuver. Complex fluid collection measuring 4.8 x 4.6 x 2.4 and 5.3 x 2.6 x 1.5 centimeters noted in the right groin . Fluid collections may represent hematomas, however fluid collections are nonspecific and infected fluid collection can not be excluded by imaging alone. Nonspecific soft tissue edema noted from the right popliteal fossa to the right ankle. IMPRESSION: No evidence of deep vein thrombosis involving the right lower extremity. Dictated by: Anita Crane MD, PhD on 08/06/2020 at 9:01 Approved by: Anita Crane MD, PhD on 08/06/2020 at 9:03
== END ==
PROVIDERS: PCP Family Medicine; Referring Provider Family Medicine; Visit Provider Family Medicine
DX: R29.898 Other symptoms and signs involving the musculoskeletal system (principal); R22.41 Localized swelling, mass and lump, right lower limb
CPT/HCPCS: 93971